=== PATIENT | female | born 1955 | race Caucasian/White ===

== ENCOUNTER → 2018-09-30 08:14 | Outpatient (CLI) | payer MEDICARE, MEDICAID, SELFPAY ==
--- NOTE | 2018-09-30 06:23 | PET_ITS ---
EXAMINATION: FDG PET CT INDICATIONS: A 63-year-old female with reported history of pulmonary nodularity. COMPARISON EXAMINATION: CT of the chest report dated 09/13/18. INDEX LESION SIZE SUV INTERPRETATION Right mid lateral hemithorax pulmonary parenchyma (n = 1) 24.9 mm (frame 177) 2.9 Fulfills quantitative criteria for viable neoplasm, histopathologic analysis recommended TECHNIQUE: Following the intravenous administration of 18 mCi of F-18 deoxyglucose via the left antecubital fossa, multiplanar image acquisitions of the neck, chest, abdomen and pelvis to level of mid thigh, obtained at one hour post radiopharmaceutical administration contemporaneously interpreted with the current CT of the neck, chest, abdomen and pelvis to level of mid thigh, dated 09/30/[address] of the chest report dated 09/13/18 reveal: SERUM GLUCOSE LEVEL: 75 mg/dl. HEIGHT: 66 inches. WEIGHT: 110 lbs. FINDINGS: 1. A distinct nodular focus of enhanced glucose metabolism is defined in the right mid lateral hemithorax pulmonary parenchyma. The calculated maximum standard uptake value is 2.9. The maximal axial diameter of the corresponding parenchymal density defined on CT of the chest dated 09/30/18 is 24.9 mm (AP). 2. Normal physiologic distribution of the radiopharmaceutical is apparent in the hepatic (3.1) and splenic parenchyma, both renal units, bladder and visualized intestinal tract. There is uniform distribution of the radiopharmaceutical concentration defined in the visualized cerebellar hemispheres and cerebral cortical structures.? Diffuse intestinal tract activity is noted throughout all four quadrants of the abdominal-pelvic retroperitoneum, mesentery consistent with normal physiologic distribution of the radiopharmaceutical. The right kidney is ptotic location. Pertinent CT findings are as follows. CHEST: Emphysematous change is noted in the bilateral upper-mid lung zones. There are no additional parenchymal densities-nodules defined in the right and left hemithorax demonstrating discernible, quantitatively significant increased glucose metabolism. Atherosclerotic calcification is defined in the thoracic aorta without evidence of dilatation, aneurysm formation. Coronary arterial calcification is observed. Bilateral axillary soft tissue densities with fatty hilus formation are non-glucose avid. ABDOMEN AND PELVIS: Atherosclerotic calcification is defined in the abdominal aorta without evidence of dilatation, aneurysm formation. Pelvic arterial calcification is observed. Calcified granuloma formation is noted within the splenic parenchyma. Right-left inguinal soft tissue densities are ametabolic. Dystrophic calcification is manifest within the bilateral lower hemipelvis in proximity to the adnexal regions without evidence of facilitated FDG uptake. SKELETAL: Degenerative changes defined in the cervical, thoracic and lumbar spine demonstrate no evidence for glucose hypermetabolism. PET/PET/CT Tumor Base -Thigh Init IMPRESSION: 1. Focal increased glucose metabolism manifest in the right mid lateral hemithorax pulmonary parenchyma fulfills quantitative criteria for viable neoplasm. Histopathologic analysis is recommended. (Fletcher et al, Annals of Internal Medicine, 138:724, 2003). 2. No other quantitatively significant hypermetabolic abnormalities are defined. Electronic Signature Francois Cody D.O. Electronically Signed: Francois Cody DO at 23:38 EST Tel , Service support ,
== END ==
PROVIDERS: Visit Provider Internal Medicine Pulmonary Disease
DX: R91.1 Solitary pulmonary nodule (principal)
CPT/HCPCS: 78815; A9552

== ENCOUNTER → 2019-12-31 09:42 | Outpatient (CLI) | payer MEDICARE, MEDICAID, SELFPAY ==
--- NOTE | 2019-12-31 10:03 | RAD_ITS ---
STUDY: X-RAY CHEST REASON FOR EXAM: Female, 64 years old. HX OF COPD, EMPHYZMA. INCREASED SOB TECHNIQUE: PA and lateral views of the chest. COMPARISON: PET scan dated September 30, 2018. FINDINGS: Cardiac silhouette unremarkable. Pulmonary vascularity unremarkable. Aorta unremarkable. Elevated right hemidiaphragm. Right lower lung masslike lesion measuring up to 6.2 cm. COPD/emphysema. Costophrenic angle blunting without significant effusions. Upper abdomen unremarkable. Osseous structures intact with degenerative features. No pneumothorax. Exaggerated thoracic kyphosis. RAD/Chest PA and Lateral IMPRESSION: Right lower lung masslike lesion (correlate recent cross-sectional imaging and/or follow-up CT scan) Elevated right hemidiaphragm COPD/emphysema Electronically Signed: Isidro Cisneros DO at 10:25 EDT Tel , Service support ,
[2019-12-31 10:32] LABS: Absolute Lymphocyte Count 1.63 X10^3/uL (0.83-4.51); Absolute Neutrophil Count 10.3 X10^3/uL (2.0-7.7); Basophil# 0.06 X10^3/uL; Basophil% 0.4 % (0-1); Eosinophil# 0.89 X10^3/uL; Eosinophils% 6.3 % (0-5); Hematocrit 44.3 % (37-47); Hemoglobin 14.5 g/dL (12.0-15.0); Lymphocyte # 1.63 X10^3/ul (4.0); Lymphocyte % 11.5 % (19-41); Mean Corp Hgb Conc 32.7 g/dL (32-36); Mean Corpuscular Volume 91.7 fL (81-99); Mean Platelet Vol. 10.6 fl (6.2-12.0); Monocyte# 1.31 X10^3/uL; Monocyte% 9.2 % (0-10); NRBC Flagged by Analyzer 0 % (0-5); Neutrophil # 10.28 X10^3/uL (2.7-7.7); Neutrophil % 72.3 % (47-70); Platelet Count 311 K/mm3 (150-450); RBC Distribution Width CV 12.6 % (11.6-14.6); RBC Distribution Width SD 42.4 fl (35.1-43.9); Red Blood Count 4.83 M/mm3 (4.2-5.4); White Blood Count 14.2 K/mm3 (4.4-11.0)
[2019-12-31 10:53] LABS: CRP 3.09 mg/L (0.0-3.0)
[2019-12-31 11:26] LABS: D-Dimer Quantitative (DVT/PE) 2.61 FEU/ug/m (0.27-0.49)
== END ==
PROVIDERS: Referring Provider Internal Medicine Pulmonary Disease; Visit Provider Internal Medicine Pulmonary Disease
DX: J44.9 Chronic obstructive pulmonary disease, unspecified (principal)
CPT/HCPCS: 36415; 71046; 85025; 85379; 86140

== ENCOUNTER 2019-12-31 15:23 | Emergency (ER) | payer MEDICARE, MEDICAID, SELFPAY ==
[2019-12-31 15:25] VITALS: BP 156/115; PULSE 109; RESP 20; TEMP 36.1; O2SAT 97; BMI 16.0
[2019-12-31 15:40] VITALS: BP 156/115; PULSE 109; RESP 20; TEMP 36.1; O2SAT 97
--- NOTE | 2019-12-31 15:56 | EKG12_ITS ---
Test Reason : SOB Blood Pressure : / mmHG Vent. Rate : 094 BPM Atrial Rate : 094 BPM P-R Int : 144 ms QRS Dur : 076 ms QT Int : 366 ms P-R-T Axes : 093 083 078 degrees QTc Int : 457 ms Normal sinus rhythm Normal ECG Confirmed by DEBORA ESCOBEDO, SANTIAGO ([id number]), non linear editor LOR FELDER ([id number]) on 01/06/2020 2:56:52 PM Referred By: LONI Confirmed By:SANTIAGO CAZARES MD
--- NOTE | 2019-12-31 15:59 | CT_ITS ---
STUDY: CTA CHEST REASON FOR EXAM: Female, 64 years old. Elevated D-dimer, increased SOB and low pulse ox on exertion. Hx COPD, emphysema, former smoker. RADIATION DOSAGE (If Supplied By Facility): CTDIvol = ( 3.12 ) mGy, DLP = ( 132.39 ) mGycm TECHNIQUE: The examination was performed with the intravenous administration of 75mL Isovue 370. Post-processing of the angiographic images was performed, with multiplanar reformation and 3D reconstruction. Individualized dose optimization techniques were used for this CT. COMPARISON: PET scan 09/30/2018. FINDINGS: There is limited enhancement of the main pulmonary artery and right and left pulmonary arteries. There is limited enhancement of the bilateral peripheral pulmonary arteries. Specifically, most of the contrast is seen in the aorta. The the aorta is enhanced much more than the pulmonary arteries. This indicates a much too broad contrast bolus with improper timing. Pulmonary emboli cannot be excluded beyond the pulmonary trunk. Normal thoracic aorta and visualized great vessels. There is no demonstrated aortic dissection. Heart is small which can be seen with emphysema. Normal mediastinum. Normal hilar regions. Normal visualized trachea and bronchi. The lungs are hyper expanded, with flattening of the hemidiaphragms. Evidence of diffuse interstitial fibrosis. Pulmonary nodules are seen along the posterior surface of the mid and lower right hemithorax suspicious for neoplasm. Nodules also seen along the minor fissure and major fissure on the right also suspicious for pleural metastatic disease. Small right pleural effusion with compressive atelectasis of the right lower lobe. Left lung is clear. There are degenerative changes of thoracic spine. Normal visualized upper abdomen. CT/CTA Chest W/WO Contrast IMPRESSION: Technically suboptimal exam. No emboli are neither confirmed nor excluded because of inadequate opacification of the pulmonary arteries. Severe COPD. Numerous soft tissue nodules throughout the pleural surfaces of the right lung suspicious for neoplastic disease. Small right pleural effusion with compressive atelectasis of the right lower lobe. Electronically Signed: Graham Garces MD at 18:00 EDT , Service support ,
--- NOTE | 2019-12-31 16:01 | ED.DCSUM_ITS ---
- ER Visit Summary Date of Service: 12/31/19 Chief Complaint: Shortness of breath History of Present Illness: The patient is a 64 F who presents with shortness of breath that is been getting worse over the past week. Patient states she has a history of lung cancer. Patient had an outpatient chest x-ray done today which showed a questionable pneumonia. Patient also had a d-dimer ordered today which was elevated. Patient states her breathing is worse with any exertion. Patient states her pain improves when she wears her oxygen. Patient states she has some pain in her right upper chest that last for approximately 2 minutes at night when she lays down. Patient describes it as aching. Patient denies any fevers or chills. Patient denies any cough. Patient denies any sore throat or ear pain. Patient states she is being treated with radiation for lung cancer. Physical Examination: Vital signs are stable except for mild tachycardia of 109. Patient is afebrile. Patient is in no acute distress. Oral mucosa is pink and moist. Neck is supple. Trachea is midline. There is no JVD. Heart was regular rate and rhythm. Lungs are diminished bilaterally. There is adequate respiratory effort noted. Abdomen is soft. Bowel sounds are normal. There is no tenderness. Cranial nerves II through XII are intact. There are no focal motor or sensory deficits noted. Extremities are intact. There is no calf tenderness or edema. Test Results: CBC was done earlier as an outpatient and showed a leukocytosis. Comprehensive metabolic profile was obtained and was essentially within normal limits. D-dimer ordered as an outpatient earlier today was elevated. CTA of the chest was obtained. There is technically suboptimal exam. Pulmonary embolism cannot be confirmed nor excluded because of inadequate opacification of the pulmonary arteries. This was interpreted by the radiologist and reviewed by myself. Emergency Department Course and Treatment: Patient was given IV fluids. Patient was given a dose of Lovenox here. Patient was ambulated here in the emergency department on room air. Patient's pulse oximeter only dropped to 93% on room air at the end of ambulation. Patient states she did feel somewhat short of breath but this improved after rest. Patient does not want to be admitted. Patient states she needs to go home. Case was discussed with her mobile paramedical examiner. They will arrange for a repeat CTA of the chest tomorrow. They will call the patient tomorrow for further instructions. Patient understood and was agreeable with the plan. All questions were answered. Disposition: Discharge home Impression: 1. Dyspnea 2. History of lung cancer This note was generated with [employer] dictation software. It may contain incorrect words, spelling, and punctuation that were not noted in review of the chart prior to signing ED Disposition - Plan for ED Patient: Disposition: Home or Assisted Living Diagnosis: Dyspnea Instructions: ED Dyspnea Referrals: Care Physician,No Primary [Primary Care Provider] - 3-5 Days Additional Instructions: Your mobile paramedical examiner will arrange for a repeat CTA tomorrow as an outpatient. They will call you tomorrow morning with further instructions.
[2019-12-31 16:37] VITALS: BP 156/115; PULSE 109; RESP 20; TEMP 36.1; O2SAT 97
[2019-12-31 17:09] LABS: AST(SGOT) 20 U/L (15-37); Alanine Aminotransfer ALT/SGPT 33 U/L (13-56); Albumin, Serum 3.7 g/dL (3.2-5.0); Alkaline Phosphatase 67 U/L (45-117); Anion Gap 7 (5-15); BUN 17 mg/dL (7-18); BUN/Creat Ratio 22.9 RATIO (10-20); Chloride 103 mmol/L (98-107); Creatinine, Serum 0.74 mg/dL (0.55-1.02); EST Glomerular Filtration Rate 83 mL/min (>60); Est Glom Filt Rate - Afr Amer 101 mL/min (>60); Globulin 3.7 g/dL (2.2-4.2); Glucose 120 mg/dL (74-106); Potassium 4.4 mmol/L (3.5-5.1); Protein, Total 7.4 g/dL (6.4-8.2); Sodium Level 137 mmol/L (136-145)
[2019-12-31 17:10] LABS: Lactic Acid 1.1 mmol/L (0.4-1.9)
[2019-12-31 17:58] VITALS: BP 150/90; PULSE 57; RESP 20; TEMP 36.8; O2SAT 96
[2019-12-31 18:41] LABS: Probe Check PASS; SARS-COV-2 DNA by PCR Negative (Negative); Specimen Processing Control PASS
[2019-12-31 18:57] VITALS: BP 150/90; PULSE 57; RESP 20; TEMP 36.8; O2SAT 96
[2019-12-31] MEDS: Enoxaparin 60 MG/0.6 ML Syringe 50 MG SC (19:39)
[2019-12-31 19:41] VITALS: BP 154/104; PULSE 70; RESP 18; O2SAT 98
== END 2019-12-31 19:47 | disposition home or self-care (01) ==
PROVIDERS: Emergency Provider Emergency Medicine
DX: C34.90 Malignant neoplasm of unspecified part of unspecified bronchus or lung (principal); J44.9 Chronic obstructive pulmonary disease, unspecified; Z87.891 Personal history of nicotine dependence; Z92.3 Personal history of irradiation; R06.00 Dyspnea, unspecified; Z99.81 Dependence on supplemental oxygen
CPT/HCPCS: 36415; 71046; 71275; 80053; 83605; 85025; 85379; 86140; 87040; 87633; 87635; 87804; 87807; 87880; 93005; 96360; 96361; 96372; 99284; J7030; Q9967; A4216; U0004

== ENCOUNTER → 2020-01-19 | Outpatient (CLI) | payer MEDICARE, MEDICAID, SELFPAY ==
[2019-12-31 15:25] VITALS: BMI 16.0
--- NOTE | 2020-01-19 08:30 | PET_ITS ---
EXAMINATION: FDG PET-CT INDICATIONS: A 64-year-old female with reported history of carcinoma of the lung presenting for evaluation of pulmonary nodularity. COMPARISON EXAMINATION: CT of the chest report dated 12/31/2019, FDG PET study dated 09/30/2018 INDEX LESION SIZE SUV INTERPRETATION NEW: mediastinum, right thoracic perihilum 30.6 (largest) (frame 150) 5.3 (max) Fulfills quantitative criteria for viable neoplasm NEW: right hemithorax pleural interface 6.7 (max) Fulfills quantitative criteria for viable neoplasm NEW: right lower lung field-right lower lobe 36.5-mm (frame 136) 6.8 Fulfills quantitative criteria for viable neoplasm TECHNIQUE: Following the intravenous administration of 16.15 mCi of F-18 deoxyglucose via the left antecubital fossa, multiplanar image acquisitions of the neck, chest, abdomen and pelvis to level of mid thigh, obtained at one hour post radiopharmaceutical administration contemporaneously interpreted with the current CT of the neck, chest, abdomen and pelvis, to level of mid thigh, dated 01/19/[address] of the chest report dated 12/31/2019, FDG PET study dated 09/30/2018 reveals: BLOOD GLUCOSE LEVEL:?? 112 mg/dl?HEIGHT:?66 inches?WEIGHT: 100 lbs. FINDINGS: 1. Increased glucose metabolism is newly defined in the subcarinal mediastinum and right thoracic perihilum generating a calculated maximal standard uptake value of 5.3. The maximal axial diameter of the largest metabolic, morphologic abnormality on review of CT of the chest dated 01/19/2020 is 30.6-mm (AP). 2. Multiple foci of increased FDG concentration are defined in the right hemithorax at the pleural interface rendering a calculated maximal standard uptake value of 6.7. 3. Enhanced FDG distribution is noted in the right lower lung field-right lower lobe generating a calculated maximal standard uptake value of 6.8. The maximal axial diameter of the corresponding parenchymal density-mass on review of CT of the chest dated 01/19/2020 is 36.5-mm (transverse). 4. Normal physiologic distribution of the radiopharmaceutical is apparent in the hepatic (2.4/3.1) and splenic parenchyma, both renal units, bladder and visualized intestinal tract. Prominent radiopharmaceutical concentration is observed in the oral cavity without evidence of corresponding soft tissue mass most consistent with physiologic tracer distribution or potentially activated leukocytes associated with an inflammatory process. Facilitated tracer uptake noted in the right lower abdominal and right mid pelvic mesentery appears contiguous to ureter most consistent with physiologic distribution of the radiopharmaceutical. The previously identified right mid lateral lung hypermetabolic focus noted on the FDG PET study dated 09/30/2018 is not apparent on the current examination. Pertinent CT findings are as follows: CHEST: The right hemithorax pleural effusion is non-glucose avid. There is atherosclerotic calcification defined in the thoracic aorta without evidence of dilatation-aneurysm formation. Coronary arterial calcification is observed. Emphysematous changes are noted in the bilateral upper-mid lung zones. ABDOMEN AND PELVIS: There is atherosclerotic calcification defined in the abdominal aorta without evidence of dilatation-aneurysm formation. Pelvic arterial calcification is observed. Calcified granuloma formation is noted within the splenic parenchyma. Subcentimeter bilateral inguinal soft tissue densities are ametabolic. SKELETAL: Degenerative changes are noted in the cervical, thoracic and lumbar spine. PET/PET/CT Tumor Base -Thigh Init IMPRESSION: 1. ABNORMAL EXAMINATION INDICATIVE OF MALIGNANT-METASTATIC VIABLE NEOPLASM. 2. Increased radiopharmaceutical concentration newly apparent in the subcarinal mediastinum and right thoracic perihilum fulfills quantitative criteria for metastatic viable neoplasia. (Derek et al, Journal of Clinical Oncology 16:2142, 1998). 3. Facilitated uptake observed in the right hemithorax at the pleural interface fulfills quantitative criteria for viable pleural neoplasm. (Cool, et al, Chest 122:1918, 2002). 4. Enhanced tracer uptake visualized in the right lower lung field-right lower lobe fulfills quantitative criteria for viable neoplasm. 5. There is interval resolution of the prior defined right mid lung hypermetabolic focus. 6. Overall, compared to the prior FDG PET study dated 09/30/2018, there is interim development of multifocal defined viable neoplastic disease. Electronic Signature Francois Cody D.O. Electronically Signed: Francois Cody DO at 17:03 EDT Tel , Service support ,
== END | disposition home or self-care (01) ==
LOC: ONC 08:01
PROVIDERS: Referring Provider Internal Medicine Pulmonary Disease; Visit Provider Internal Medicine Pulmonary Disease
DX: R91.8 Other nonspecific abnormal finding of lung field (principal)
CPT/HCPCS: 78815; A9552